=== PATIENT | female | born 1990 | race Caucasian/White ===

== ENCOUNTER 2020-10-19 19:17 | Emergency (ER) | payer OTHER ==
[~2020-10-19] VITALS: Ht 157.5 cm; Wt 68.2 kg
[2020-10-19] MEDS ORDERED: NALOXONE HCL 1 MG/ML 2 ML SYG ONE (19:26)
[2020-10-19] MEDS ORDERED: 0.9% SODIUM CHLORIDE 10 ML SYRINGE IVP PRN (19:30)
[2020-10-19 19:42] LABS: BASOPHILS % (AUTO) 0.3 % (0.0-2.0); EOSINOPHILS % (AUTO) 2.2 % (1.0-6.0); HEMATOCRIT 45.4 % (36-46); HEMOGLOBIN 14.4 g/dL (12.0-16.0); LYMPHOCYTES # (AUTO) 5.3 K/uL (1.0-4.8); LYMPHOCYTES % (AUTO) 37.8 % (22.0-44.0); MEAN CORPUSCULAR HEMOGLOBIN 30.6 pg (26.0-34.0); MEAN CORPUSCULAR HGB CONC 31.8 G/dL (31.0-37.0); MEAN CORPUSCULAR VOLUME 96 fL (80-100); MONOCYTES # (AUTO) 1.1 K/uL (0.1-1.0); MONOCYTES % (AUTO) 7.7 % (2.0-9.0); NEUTROPHILS # (AUTO) 7.2 K/uL (1.8-7.7); PLATELET COUNT (AUTO) 338 K/uL (150-450); RED BLOOD CELL COUNT(AUTO) 4.72 MIL/uL (4.00-5.20); RED CELL DISTRIBUTION WIDTH 13.3 % (11.5-14.5)
[2020-10-19 19:53] LABS: ANION GAP 24 mmol/L (8-16); CALCIUM, TOTAL 9.1 mg/dL (8.8-10.5); CARBON DIOXIDE 15 mmol/L (22-29); CHLORIDE 104 mmol/L (98-107); CREATININE 0.97 mg/dL (0.60-1.30); GLOMERULAR FILTR. RATE CALC > 60 mL/min (>60); GLUCOSE,RANDOM 157 mg/dL (70-110); SODIUM SERUM 143 mmol/L (136-145); UREA NITROGEN, BLOOD 23 mg/dL (7-18)
[2020-10-19 19:57] LABS: SALICYLATE < 2.8 mg/dL (2.8-20.0)
[2020-10-19 19:59] LABS: PROTHROMBIN TIME 10.3 SEC (9.4-11.6)
[2020-10-19 20:03] LABS: AMMONIA 133 umol/L (11-32); TROPONIN I < 0.02 ng/mL (0.00-0.05)
[2020-10-19 20:12] LABS: B-TYPE NATRIURETIC PEPTIDE 9 pg/mL (0-100)
[2020-10-19 20:15] LABS: ALANINE AMINOTRANSFERASE 27 U/L (12-78); ALBUMIN 4.6 g/dL (3.4-5.0); ALKALINE PHOSPHATASE 60 U/L (46-116); ASPARTATE AMINOTRANSFERASE 31 U/L (15-37); BILIRUBIN,TOTAL 0.4 mg/dL (0.1-1.0); CREATINE KINASE, TOTAL ONLY 672 U/L (26-192); HCG,QUANTITATIVE < 1 mIU/mL (0-6); TOTAL PROTEIN, SERUM 8.6 g/dL (6.4-8.2)
[2020-10-19 20:25] LABS: APPEARANCE,URINE CLOUDY (CLEAR); GLUCOSE, URINE (UA) NEGATIVE (NEGATIVE); KETONES,URINE 15 mg/dL (NEGATIVE); LEUKOCYTE ESTERASE ,URINE NEGATIVE (NEGATIVE); NITRATE,URINE NEGATIVE (NEGATIVE); OCCULT BLOOD,URINE MODERATE (NEGATIVE); PROTEIN,URINE SEE CONFIRM (NEGATIVE)
[2020-10-19 20:32] LABS: BILIRUBIN,URINE PRELIM. POSITIVE (NEGATIVE)
[2020-10-19 20:33] LABS: SULFOSALICYLIC ACID,URINE 1+ (Negative)
[2020-10-19 20:35] LABS: LACTIC ACID 9.5 mmol/L (0.4-2.0)
[2020-10-19 20:36] LABS: ABG CARBOXYHEMOGLOBIN 0.3 % (0.0-1.5); ABG METHEMOGLOBIN 0.4 % (0.0-1.5); ABG OXYGEN CONTENT 19.1 mL/dL (15.0-23.0); ABG OXYGEN SATURATION 98.7 % (95.0-98.0); ABG PCO2 40 mmHg (35-45); ABG PH 7.319 (7.350-7.450); ABG TOTAL HEMOGLOBIN 13.6 G/dL (12.0-18.0); PO2, ARTERIAL BG 173.4 mmHg (92.0-100.0); SOURCE, BLOOD GAS ARTERIAL; TEMPERATURE, FAHRENHEIT, BG 98.5 FAHREN (96.0-98.6)
[2020-10-19 20:36] LABS: BACTERIA,URINE Moderate /HPF (None Seen); SQUAMOUS EPITHELIAL CELL,UR Few /LPF (None Seen)
[2020-10-19 20:37] LABS: MUCUS,URINE Moderate LPF (None Seen)
[2020-10-19 20:37] LABS: O2 DEVICE,BLOOD GAS CANNULA (ROOM AIR); SITE, BLOOD GAS LFT RADIAL
[2020-10-19 20:40] LABS: ACETAMINOPHEN < 2 mcg/mL (10-30)
[2020-10-19 20:41] LABS: PHENYTOIN (DILANTIN) < 0.5 mcg/mL (10.0-20.0); VALPROIC ACID < 3 mcg/mL (50-100)
[2020-10-19] MEDS ORDERED: SODIUM CHLORIDE 0.9% 1,000 ML IV ONE (20:45)
[2020-10-19] MEDS ORDERED: LACTULOSE 200 GM/300 ML RECTAL SOLUTION PR ONE (20:45)
[2020-10-19 20:46] LABS: AMPHET/METH SCREEN,URINE NEGATIVE (NEGATIVE); BARBITURATE SCREEN, URINE NEGATIVE (NEGATIVE); BENZODIAZEPINES SCREEN,URINE NEGATIVE (NEGATIVE); CANNABINOID SCREEN,URINE NEGATIVE (NEGATIVE); COCAINE SCREEN,URINE NEGATIVE (NEGATIVE); METHADONE SCREEN, URINE NEGATIVE (NEGATIVE); OPIATE SCREEN,URINE NEGATIVE (NEGATIVE); PHENCYCLIDINE SCREEN,URINE NEGATIVE (NEGATIVE)
[2020-10-19] MEDS ORDERED: POTASSIUM CHL 20 MEQ/0.9% NS 1,000 ML IV ONE (21:30)
[2020-10-19] MEDS ORDERED: POTASSIUM CHLORIDE 20 MEQ ER TABLET PO PRN (22:00)
[2020-10-19] MEDS ORDERED: POTASSIUM CHL 10 MEQ/WATER 50 ML IV PRN (22:00)
[2020-10-19] MEDS ORDERED: SODIUM CHLORIDE 0.9% 1,000 ML IV SCH (22:00)
[2020-10-19] MEDS ORDERED: LORazepam 2 MG/ML VIAL IVP PRN (22:00)
[2020-10-19] MEDS ORDERED: ONDANSETRON HCL 4 MG/2 ML VIAL IVP PRN (22:15)
[2020-10-19] MEDS ORDERED: ACETAMINOPHEN 325 MG TABLET PO PRN (22:15)
[2020-10-19] MEDS ORDERED: LACTULOSE 20 GM/30 ML SOLUTION UDCUP PO ONE ×2 (22:15→22:30)
[2020-10-19] MEDS ORDERED: LevETIRAcetam 500 MG in DEXTROSE 5%-WATER 100 ML IV ONE (22:30)
[2020-10-19 22:42] LABS: COVID AG,FIA SOURCE NASOPHARYNGEAL
[2020-10-20] MEDS ORDERED: HEPARIN SODIUM,PORCINE 5,000 UNITS/ML VIAL SQ SCH
[2020-10-20] MEDS ORDERED: LACTULOSE 20 GM/30 ML SOLUTION UDCUP PO SCH
[2020-10-20 01:48] VITALS: BP 110/57
[2020-10-20] MEDS ORDERED: PANTOPRAZOLE SODIUM 40 MG/VIAL IVP SCH (09:00)
== END 2020-10-20 01:55 | disposition short-term general hospital (02) ==
LOC: EMS 19:17 → ICU 21:30 → UNDOADMIN 21:30 → EMS 10-20 01:55
DX: G93.41 Metabolic encephalopathy (principal); E72.20 Disorder of urea cycle metabolism, unspecified; R41.82 Altered mental status, unspecified; E86.0 Dehydration; E87.2 Acidosis; Z20.822 Contact with and (suspected) exposure to COVID-19
CPT/HCPCS: 36415; 36600; 70450; 71045; 71250; 80053; 80164; 80185; 80307; 81001; 82140; 82550; 82805; 83605; 83880; 84484; 84702; 85025; 85610; 85730; 87040; 87086; 87426; 93005; 96361; 96372; 96374; 99291; G0480; J0712; J1644; J2310; J3480; J7030; J7060; 72192; 74150; 81002; G0378; G0481